=== PATIENT | female | born 1975 | race Caucasian/White ===

== ENCOUNTER 2024-10-30 05:51 | Day surgery (SDC) | payer MEDICARE, MEDICAID ==
--- NOTE | 2024-10-23 12:10 | ELECTROCARDIOGRAPH REPORT ---
[facility] Test Date: 2024-10-23 Test Time: 12:09:05 Pat Name: RETA ALBRIGHT Department: [facility]-PRE-OP Patient ID: [facility]-[id number] Room: Gender: F Plumber Apprentice: CAROLINE : 1975 Requested By: CHAD DE Order Number: [id number] Reading MD: Dr. DOMENIC Contreras Measurements Intervals [place] Rate: 66 P: 32 NV: 126 QRS: 21 QRSD: 108 T: 62 QT: 356 QTc: 373 Interpretive Statements Sinus rhythm Nonspecific T abnormalities, lateral leads Electronically Signed On 10-23-2024 19:17:[address] DOMENIC Contreras Please click the below link to view image of tracing.
[2024-10-23 12:19] LABS: MEAN PLATELET VOLUME 8.4 FL (7.4-10.4); PRE OP HEMATOCRIT 33.2 % (35.0-45.0); PRE OP HEMOGLOBIN 11.2 g/dL (12.0-16.0); PRE OP PLATELET COUNT 151 X10'3 (140-440); PRE OP WHITE BLOOD COUNT 4.0 10'3 (4.8-10.8); RED CELL DISTRIBUTION WIDTH 14.4 % (11.5-14.5)
[2024-10-23 12:34] LABS: CREATININE 0.87 MG/DL (0.40-0.90); PRE OP ALT 35 U/L (30-65); PRE OP ANION GAP 10 (8-16); PRE OP AST 25 U/L (10-37); PRE OP BILIRUB, TOTAL 0.3 MG/DL (0.0-1.0); PRE OP GLUCOSE 90 MG/DL (70-104); PRE OP POTASSIUM 3.9 MMOL/L (3.4-5.1); PRE OP SODIUM 144 MMOL/L (135-145); TOTAL CARBON DIOXIDE 27.5 MMOL/L (24-32); eGFR 69 ML/MIN
[2024-10-30] VITALS (7 sets, daily range): BP systolic 106–148; BP diastolic 66–88; PULSE 60–73; RESP 10–18; TEMP 97.6; O2SAT 95–99
[~2024-10-30] VITALS: Ht 170.2 cm; Wt 71.0 kg
[2024-10-30] MEDS: ceFAZolin 2gm/dext,iso 50mL 50 ML IV ONE (05:30)
[~2024-10-30 05:51] MED LIST: ATOM100C2 PO; BACL20TA PO; BUSP30TA3 PO; CYCL1DRO10 EACHEYE; DICL75TA28 PO; DICY20TA17 PO; EPIN0.3A3 SQ; ESCI-8 PO; FAMO40TA7 PO; GABA-1555 PO; HYDR12.55 PO; HYDR200T73 PO; LEVO75TA7 PO; MELO-102 PO; MILN100T PO; NORT25CA PO; PANT40TA54 PO; PRED20TA PO; SUMA100T16 PO; TRAZ-256 PO; [UNRECOGNIZED DRUG - CODE] PO
[2024-10-30] MEDS: ringers solution, lacted 1,000 ML IV SCH (06:35)
[2024-10-30] MEDS ORDERED: LIDOcaine 2% (20mg/ml) 5ml vial ONE (06:39)
[2024-10-30] MEDS ORDERED: BUPIVAcaine/PF 2.5mg/ml (0.25%) 10ml vial ONE ×2 (06:39→06:42)
[2024-10-30] MEDS ORDERED: fentaNYL/PF 50MCG/1 ML 2ML syringe ONE (07:16)
[2024-10-30] MEDS ORDERED: propofol inj 20 ML IV ONE ×2 (07:36)
[2024-10-30] MEDS ORDERED: midazolam 1 mg/ML 2ml injection ONE (07:36)
[2024-10-30] MEDS ORDERED: LIDOcaine 0.5% (5mg/ml) 50ml vial ONE (07:37)
[2024-10-30] MEDS: BUPIVAcaine/PF 2.5mg/ml (0.25%) 10ml vial IJ ONE (07:46)
[2024-10-30] MEDS ORDERED: hydrALAZINE 20mg/ml inj. IV PRN (07:55)
[2024-10-30] MEDS ORDERED: HYDROmorphone/PF 0.2 MG/ML SYRINGE IV PRN (07:55)
[2024-10-30] MEDS ORDERED: ondansetron/PF 4mg/2ml inj IV PRN (07:55)
[2024-10-30] MEDS ORDERED: labetalol 20mg/4ml (5mg/ml) syringe IV PRN (07:55)
[2024-10-30] MEDS ORDERED: ringers solution, lacted 1,000 ML IV SCH (07:55)
[2024-10-30] MEDS: acetaminophen 1,000mg/100ml IV 100 ML IV PRN (08:20)
[2024-10-30] MEDS: morphine 4 MG/ML inj SYRINge IV PRN (08:25)
[2024-10-30] MEDS: HYDROmorphone/PF 0.2 MG/ML SYRINGE IV PRN (08:32)
[2024-10-30] MEDS: HYDROcodone/acetaminophen 5mg/325mg tablet PO ONE (08:34)
--- NOTE | 2024-10-30 11:44 | OPERATIVE REPORT ---
Operative Report Providers to ~ Date of Procedure: Oct 30, 2024 Pre-Operative Diagnosis: Thumb carpometacarpal joint arthritis Post-Operative Diagnosis SAME as PRE-Op Procedure Performed Right thumb ligament reconstruction tendon interposition arthroplasty Surgeon: Eddi Wellington MD Make Up Arranger None Anesthesiologist: Wilfred Lee Type of Anesthesia: Regional Findings: Estimated Blood Loss: None Specimen Removed: None Description of Procedure: The patient is a 48-year-old woman with a carpometacarpal joint arthritis refractory to nonsurgical treatment. Surgery is indicated to improve function and relieve symptoms. Risks and benefits were discussed with the patient. Some of the risks include but are not limited to infection, bleeding, incomplete relief of symptoms and stiffness. She agreed to proceed. Block and antibiotics were given in the operating room. Time-out procedure was observed. The arm was prepped and draped in usual manner. The 1st incision was made 8 cm proximal to the volar wrist crease over the flexor carpi radialis which was transected at that level. The incision was closed and the 2nd incision was made over the dorsal thumb metacarpal curving onto the volar wrist crease. Nerves were mobilized and protected and an arthrotomy was made around the trapezium which was removed using the sagittal saw and rongeur. A diagonal tunnel was made in the metacarpal and the FCR tendon was passed subcutaneously into the thumb wound leaving it attached at the base of the 2nd metacarpal. It was passed through the bone tunnel and then cinched down and sutured to itself completing the SUSPENSION portion of the procedure The remainder of the tendon was folded over multiple times and secured in the space created by the trapezium excision held in place with a deep capsular stitch. This completed the INTERPOSITION portion of the procedure. The capsule was then closed over the graft imbricating it and the tendons were repaired back to the metacarpal. The incision was then closed in layers. Marcaine was injected at both surgical sites and a sterile dressing was applied including a plaster splint. The tourniquet was released and the hand perfused well and the patient was taken to the recovery room in stable condition. She tolerated the procedure well. EDDI WELLINGTON Jr., MD Oct 30, 2024 11:44
== END 2024-10-30 08:58 | disposition home or self-care (01) ==
LOC: PAS 05:51
PROVIDERS: ATTEND Orthopaedic Surgery Hand Surgery
DX: M18.11 Unilateral primary osteoarthritis of first carpometacarpal joint, right hand (principal); E03.9 Hypothyroidism, unspecified; K21.9 Gastro-esophageal reflux disease without esophagitis; G43.909 Migraine, unspecified, not intractable, without status migrainosus; F41.9 Anxiety disorder, unspecified; F32.A Depression, unspecified; M79.7 Fibromyalgia; Z79.890 Hormone replacement therapy; Z79.891 Long term (current) use of opiate analgesic; Z79.899 Other long term (current) drug therapy; Z90.49 Acquired absence of other specified parts of digestive tract; Z98.891 History of uterine scar from previous surgery; Z98.890 Other specified postprocedural states; Z88.8 Allergy status to other drugs, medicaments and biological substances
CPT/HCPCS: 25448; 36415; 80053; 82948; 85025; 93005; A4215; A4618; A6449; A7000; J0131; J1171; J2003; J2250; J2270; J2704; J3010; J3490; J7030; J7120; Z7506; Z7512; Z7610